=== PATIENT | male | born 1980 | race Caucasian/White ===

== ENCOUNTER 2017-08-05 08:17 | Emergency (ER) | payer OTHER ==
[~2017-08-05] VITALS: Ht 180.3 cm; Wt 81.6 kg
[2017-08-05 08:27] VITALS: Ht 180.3 cm; Wt 81.6 kg
[2017-08-05 09:16] LABS: BASOPHIL % 0.6 % (0-2); PLATELET COUNT 179 x10^3mcL (130-400); RED CELL DISTRIBUTION WIDTH 12.4 % (11.5-14.5)
[2017-08-05 09:59] VITALS: BP 131/75
== END 2017-08-05 09:59 | disposition home or self-care (01) ==
LOC: ED 08:17
PROVIDERS: Emergency Medicine
DX: L04.0 Acute lymphadenitis of face, head and neck (principal); M25.562 Pain in left knee
CPT/HCPCS: 36415; Q0092

== ENCOUNTER 2018-11-06 12:24 | Emergency (ER) | payer OTHER ==
[~2018-11-06] VITALS: Ht 180.3 cm; Wt 83.9 kg
[2018-11-06 12:58] VITALS: Ht 180.3 cm; Wt 83.9 kg
[2018-11-06 14:40] VITALS: BP 138/87
== END 2018-11-06 14:30 | disposition home or self-care (01) ==
LOC: ED 12:24
DX: K64.4 Residual hemorrhoidal skin tags (principal); R03.0 Elevated blood-pressure reading, without diagnosis of hypertension; Z98.890 Other specified postprocedural states; Z90.89 Acquired absence of other organs